=== PATIENT | female | born 1985 | race American Indian/Alaskan Native ===

== ENCOUNTER 2017-01-09 19:24 | Emergency (ER) | payer MEDICAID ==
--- NOTE | 2017-01-09 20:52 | Emergency Department Report ---
HPI - General Chief Complaint: Extremity Injury, Upper Time Seen by Provider: 01/09/17 20:36 - HPI HPI: Patient is a 31-year-old female presents to ED complaining of right leg down a 6 days. Patient states about 6 days ago she was at work when she slammed her right hand between the door and the medicine cabinet. Patient states she had some bruising on the right thumb that is now resolved. Patient states she is still experiencing some pain with lifting objects. Patient describes pain as throbbing in nature. She denies loss of sensation or any bleeding. She denies fevers/chills/nausea/vomiting/abdominal pain/chest pain/dyspnea/ headache or any other problems ED Past Medical Hx - Past Medical History Previous Medical History?: No - Surgical History Past Surgical History?: No - Social History Smoking Status: Never Smoker Substance Use Type: None - Medications Home Medications: Home Medications Medication Instructions Recorded Confirmed Last Taken Type Cyclobenzaprine [Flexeril] 10 mg PO QHS PRN #20 tablet 01/09/17 Unknown Rx Ibuprofen [Motrin] 800 mg PO Q8HR PRN #30 tablet 01/09/17 Unknown Rx ED Review of Systems ROS: Stated complaint: PAIN RT HAND Other details as noted in HPI Constitutional: denies: chills, fever Eyes: denies: eye pain, eye discharge, vision change ENT: denies: ear pain, throat pain Respiratory: denies: cough, shortness of breath, wheezing Cardiovascular: denies: chest pain, palpitations Endocrine: no symptoms reported Gastrointestinal: denies: abdominal pain, nausea, diarrhea Genitourinary: denies: urgency, dysuria, discharge Musculoskeletal: denies: back pain, joint swelling, arthralgia Skin: denies: rash, lesions Neurological: denies: headache, weakness, paresthesias Psychiatric: denies: anxiety, depression Hematological/Lymphatic: denies: easy bleeding, easy bruising Physical Exam - Physical Exam Vital Signs: Vital Signs 01/09/17 19:35 Temperature 98.3 F Pulse Rate 93 H Respiratory 18 Rate Blood Pressure 156/107 O2 Sat by Pulse 100 Oximetry Physical Exam: GENERAL: Alert and oriented x3, no apparent distress, Normal Gait, atraumatic. HEAD: Head is normocephalic and a-traumatic. LUNGS: Symetrical with respiration, No wheezing, no rales or crackles, CTAB. HEART: S1, S2 present, regular rate and rhythm without murmur, no rubs, no gallops. EXTREMITIES/MUSCULOSKELETAL: No cyanosis, clubbing, rash, lesions or edema. Full ROM bilaterally. UE Pulses 2+ bilaterally. UE 5+ strength bilaterally, right hand joints is intact. Mild tenderness to palpation of the thumb. Patient able to move thumb without difficulty. Capillary refills 2 seconds. NEUROLOGIC: The patient is cooperative with no focal neurologic deficits. Cranial nerves II through XII are grossly intact. Normal speech. . Normal sensation in bilateral upper extremities, No loss of sensation, SKIN: Warm and dry, No lesions, No ulceration or induration present. ED Course Vital Signs 01/09/17 19:35 Temperature 98.3 F Pulse Rate 93 H Respiratory 18 Rate Blood Pressure 156/107 O2 Sat by Pulse 100 Oximetry ED Medical Decision Making - Radiology Data Radiology results: report reviewed, image reviewed FINAL REPORT EXAM: XR HAND 3 RT HISTORY: PAIN at thumb COMPARISONS: None. FINDINGS: Three views right hand Area of patient pain is indicated at the right 1st metacarpal. No bone lesion, periosteal reaction, or fracture. No deformity or gross malalignment. IMPRESSION: No displaced fracture. Consider additional imaging for worsening/persistent symptoms. Transcribed By: MB Dictated By: ARMANDO CAMARGO MD Electronically Authenticated By: ARMANDO CAMARGO MD Signed Date/Time: 01/09/172137 - Medical Decision Making 31-year-old female presents to ED with right hand arthralgia ED course: X-ray are ordered. X-ray shows- See above. Discussed findings with patient. Discussion patient take medication as prescribed. Discussed patient to follow up with primary care physician. Vital signs are normal patient is in no acute distress. She is alert and oriented 3 understands instructions given complex to follow Critical care attestation.: If time is entered above; I have spent that time in minutes in the direct care of this critically ill patient, excluding procedure time. ED Disposition Clinical Impression: Arthralgia of hand, right Disposition: DISCHARGED TO HOME OR SELFCARE Is pt being admited?: No Does the pt Need Aspirin: No Condition: Stable Instructions: Arthralgia (ED), Heat Pack Application (ED) Prescriptions: Cyclobenzaprine [Flexeril] 10 mg PO QHS PRN #20 tablet PRN Reason: Muscle Spasm Ibuprofen [Motrin] 800 mg PO Q8HR PRN #30 tablet PRN Reason: Pain Referrals: PRIMARY CARE, [Primary Care Provider] - 3-5 Days [facility] [Outside] - 3-5 Days [facility] [Outside] - 3-5 Days [facility] [Outside] - 3-5 Days Forms: Work/School Release Form(ED) Time of Disposition: 21:52
--- NOTE | 2017-01-09 21:43 | XRay Report ---
FINAL REPORT EXAM: XR HAND 3 RT HISTORY: PAIN at thumb COMPARISONS: None. FINDINGS: Three views right hand Area of patient pain is indicated at the right 1st metacarpal. No bone lesion, periosteal reaction, or fracture. No deformity or gross malalignment. IMPRESSION: No displaced fracture. Consider additional imaging for worsening/persistent symptoms.
[2017-01-09 22:13] VITALS: BP 132/86
== END 2017-01-09 22:11 | disposition home or self-care (01) ==
LOC: ED 19:24
DX: M25.541 Pain in joints of right hand (principal)
CPT/HCPCS: 99283

== ENCOUNTER 2017-02-09 14:22 | Emergency (ER) | payer SELFPAY ==
[2017-02-09] MEDS ORDERED: NORCO 5/325 PO ONE (17:53)
[2017-02-09] MEDS ORDERED: BACTRIM DS PO ONE (17:53)
[2017-02-09 18:16] VITALS: BP 156/93
--- NOTE | 2017-02-11 14:27 | Emergency Department Report ---
Entered by BAN JETT, acting as scribe for ALEXANDRA OG NP. ED General Adult HPI - General Chief complaint: Chest Pain Stated complaint: CHEST PAIN Time Seen by Provider: 02/09/17 17:48 Source: patient Mode of arrival: Ambulatory Limitations: No Limitations - History of Present Illness Initial comments: 31 y/o female with no significant PMHx presents to the ED c/o 2 bumps on left breast that began 2 days ago. Rates associated pain a 7/10, which she describes as sharp in quality. 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 She reports noticing the bumps later that night in the shower. She denies erythema to affected area, drainage, fever, chills, nausea, vomiting, and SOB. LMP 2016. NKDA. WILKERSON Complaint: 2 BUMPS ON LEFT BREAST Onset/Timin -: days(s) Location: chest (left breast) Radiation: non-radiation Severity scale (0 -10): 7 Quality: sharp Consistency: constant Improves with: none Worsens with: none Associated Symptoms: denies other symptoms, chest pain (left breast pain to affected areas). denies: confusion, cough, diaphoresis, fever/chills, headaches , malaise, nausea/vomiting, rash, seizure, shortness of breath, syncope, weakness Treatments Prior to Arrival: none - Related Data Previous Rx's Medication Instructions Recorded Last Taken Type Acetaminophen/Codeine [Tylenol #3] 1 tab PO Q6H PRN #6 tab 02/09/17 Unknown Rx Sulfamethoxazole/Trimethoprim 1 each PO BID #20 tablet 02/09/17 Unknown Rx [Bactrim DS TAB] Allergies Allergy/AdvReac Type Severity Reaction Status Date / Time peach Allergy Swelling Verified 01/09/17 19:35 ED Review of Systems Comment: All other systems reviewed and negative Constitutional: denies: chills, diaphoresis, fever, malaise, weakness Eyes: denies: eye pain, eye discharge, vision change ENT: denies: ear pain, throat pain Respiratory: denies: cough, orthopnea, shortness of breath, wheezing Cardiovascular: chest pain (left breast pain to affected areas). denies: palpitations, dyspnea on exertion, orthopnea, edema, syncope, paroxysmal nocturnal dyspnea Gastrointestinal: denies: abdominal pain, nausea, vomiting, diarrhea Genitourinary: denies: abnormal menses Musculoskeletal: denies: back pain, joint swelling, arthralgia Skin: other (2 bump on left breast with associated pain and no drainage). denies: rash, lesions Neurological: denies: headache, weakness, numbness, paresthesias ED Past Medical Hx - Past Medical History Previous Medical History?: No - Surgical History Past Surgical History?: No - Social History Smoking Status: Never Smoker Substance Use Type: None - Medications Home Medications: Home Medications Medication Instructions Recorded Confirmed Last Taken Type Acetaminophen/Codeine [Tylenol #3] 1 tab PO Q6H PRN #6 tab 02/09/17 Unknown Rx Sulfamethoxazole/Trimethoprim 1 each PO BID #20 tablet 02/09/17 Unknown Rx [Bactrim DS TAB] ED Physical Exam - General Limitations: No Limitations General appearance: alert, in no apparent distress - Head Head exam: Present: atraumatic, normocephalic - Eye Eye exam: Present: normal appearance, PERRL, EOMI Pupils: Present: normal accommodation - ENT ENT exam: Present: normal exam, mucous membranes moist, normal external ear exam - Neck Neck exam: Present: normal inspection, full ROM. Absent: tenderness, meningismus, lymphadenopathy - Respiratory Respiratory exam: Present: normal lung sounds bilaterally. Absent: respiratory distress, wheezes, rales, rhonchi, stridor - Cardiovascular Cardiovascular Exam: Present: regular rate, normal rhythm, normal heart sounds. Absent: systolic murmur, diastolic murmur, rubs, gallop - GI/Abdominal GI/Abdominal exam: Present: soft, normal bowel sounds. Absent: distended - Extremities Exam Extremities exam: Present: normal inspection, full ROM - Back Exam Back exam: Present: normal inspection, full ROM - Neurological Exam Neurological exam: Present: alert, oriented X3 - Psychiatric Psychiatric exam: Present: normal affect, normal mood - Skin Skin exam: Present: warm, dry, intact. Absent: rash - Other Other exam information: Chest: 2 early mildly erythematous small (1cm) , abscesses present on left breast at 9 o'clock in position that is tender to touch with no drainage or flunctuance present. ED Course Vital Signs 02/09/17 02/09/1717 14:29 18:03 18:15 Temperature 98.4 F Pulse Rate 88 74 Respiratory 20 18 16 Rate Blood Pressure 155/93 Blood Pressure 156/93 [Right] O2 Sat by Pulse 100 98 Oximetry - Pulse Oximetry Interpretation Digit-Finger Initial Pulse Oximetry Readin Actions Taken: none ED Medical Decision Making - Differential Diagnosis rash, abscess, cellulitis Critical Care Time: No ED Disposition Clinical Impression: Breast abscess Disposition: DC- TO HOME OR SELFCARE Is pt being admited?: No Does the pt Need Aspirin: No Condition: Stable Instructions: Abscess (ED) Additional Instructions: Warm compresses at least 4 times a day Return to the ED in 2 days for recheck No driving or alcohol after taking Tylenol #3 for pain follow up with PCP in 3-5 days for bp recheck Prescriptions: Acetaminophen/Codeine [Tylenol #3] 1 tab PO Q6H PRN #6 tab PRN Reason: Pain , Severe (7-10) Sulfamethoxazole/Trimethoprim [Bactrim DS TAB] 1 each PO BID #20 tablet Referrals: IBAN CUNNINGHAM MD [Staff Physician] - 3-5 Days PRIMARY CARE, [Primary Care Provider] - 3-5 Days QASIM AVITIA MD [Staff Physician] - 3-5 Days Forms: Accompanied Note, Work/School Release Form(ED) This documentation as recorded by the MALIHA garcia JASMINE,accurately reflects the service I personally performed and the decisions made by ,ALEXANDRA OG, ELIZABETH.
== END 2017-02-09 18:28 | disposition home or self-care (01) ==
LOC: ED 14:22
DX: N61.1 Abscess of the breast and nipple (principal); N61.0 Mastitis without abscess
CPT/HCPCS: 93005; 93010; 99282

== ENCOUNTER 2017-05-28 20:00 | Emergency (ER) | payer MEDICAID ==
[2017-05-28 20:41] VITALS: BP 157/110
--- NOTE | 2017-05-28 21:46 | XRay Report ---
FINAL REPORT EXAM: XR ANKLE 2V LT HISTORY: LEFT ANKLE PAIN TECHNIQUE: Left ankle two views 2 images PRIORS: None. FINDINGS: Bone mineralization appears within normal limits. No acute fracture or subluxation is identified. No gross abnormality is seen in the soft tissues. IMPRESSION: 1. No acute osseous abnormality is identified. If symptoms persist, consider repeat study in 10-14 days to assess for a currently radiographically occult fracture.
--- NOTE | 2017-05-29 03:02 | Emergency Department Report ---
HPI - General Chief Complaint: Extremity Injury, Lower Time Seen by Provider: 05/29/17 03:01 - [facility] HPI: Patient is a 31-year-old female who presents to ED with her children are also seen here in the ED. Patient is complaining of left ankle pain 1 day. Patient states earlier when she got off 4 gallons walking she stepped into a pothole with her left foot. Patient states she is pain since incident. She denies bleeding, swelling, difficulty working. Patient states pain is aggravated by applied pressure to the foot. ED Past Medical Hx - Past Medical History Previous Medical History?: No - Surgical History Past Surgical History?: No - Social History Smoking Status: Never Smoker Substance Use Type: None - Medications Home Medications: Home Medications Medication Instructions Recorded Confirmed Last Taken Type Acetaminophen/Codeine [Tylenol #3] 1 tab PO Q6H PRN #6 tab 02/09/17 Unknown Rx Sulfamethoxazole/Trimethoprim 1 each PO BID #20 tablet 02/09/17 Unknown Rx [Bactrim DS TAB] Cyclobenzaprine [Flexeril] 10 mg PO QHS PRN #30 tablet 05/29/17 Unknown Rx Ibuprofen [Motrin] 800 mg PO Q8HR PRN #30 tablet 05/29/17 Unknown Rx ED Review of Systems ROS: Stated complaint: L ANKLE INJURY Other details as noted in HPI Constitutional: denies: chills, fever Eyes: denies: eye pain, eye discharge, vision change ENT: denies: ear pain, throat pain Respiratory: denies: cough, shortness of breath, wheezing Cardiovascular: denies: chest pain, palpitations Endocrine: no symptoms reported Gastrointestinal: denies: abdominal pain, nausea, diarrhea Genitourinary: denies: urgency, dysuria, discharge Musculoskeletal: denies: back pain, joint swelling, arthralgia Skin: denies: rash, lesions Neurological: denies: headache, weakness, paresthesias Psychiatric: denies: anxiety, depression Hematological/Lymphatic: denies: easy bleeding, easy bruising Physical Exam - Physical Exam Vital Signs: Vital Signs 05/28/17 20:37 Temperature 98.0 F Pulse Rate 87 Respiratory 18 Rate Blood Pressure 157/110 O2 Sat by Pulse 98 Oximetry Physical Exam: GENERAL: Alert and oriented x3, no apparent distress, Normal Gait, atraumatic. NECK: Supple. Non edematous, No carotid bruits. No lymphadenopathy or thyromegaly. No C-spine tenderness LUNGS: Symetrical with respiration, No wheezing, no rales or crackles, CTAB. HEART: S1, S2 present, regular rate and rhythm without murmur, no rubs, no gallops. Non tender to palpation EXTREMITIES/MUSCULOSKELETAL: No cyanosis, clubbing, rash, lesions or edema. Full ROM bilaterally. UE/LE Pulses 2+ bilaterally. LE and UE 5+ strength bilaterally, straight leg raise negative bilaterally NEUROLOGIC: The patient is cooperative with no focal neurologic deficits. Cranial nerves II through XII are grossly intact. Normal speech. Normal sensation in bilateral upper and lower extremities, No loss of sensation, SKIN: Warm and dry, No lesions, No ulceration or induration present. ED Course Vital Signs 05/28/17 20:37 Temperature 98.0 F Pulse Rate 87 Respiratory 18 Rate Blood Pressure 157/110 O2 Sat by Pulse 98 Oximetry ED Medical Decision Making - Radiology Data Radiology results: report reviewed, image reviewed FINAL REPORT EXAM: XR ANKLE 2V LT HISTORY: LEFT ANKLE PAIN TECHNIQUE: Left ankle two views 2 images PRIORS: None. FINDINGS: Bone mineralization appears within normal limits. No acute fracture or subluxation is identified. No gross abnormality is seen in the soft tissues. IMPRESSION: 1. No acute osseous abnormality is identified. If symptoms persist, consider repeat study in 10-14 days to assess for a currently radiographically occult fracture. Critical care attestation.: If time is entered above; I have spent that time in minutes in the direct care of this critically ill patient, excluding procedure time. ED Disposition Clinical Impression: Left ankle strain Qualifiers: Encounter type: initial encounter Qualified Code(s): S96.912A - Strain of unspecified muscle and tendon at ankle and foot level, left foot, initial encounter Disposition: TO HOME OR SELFCARE Is pt being admited?: No Does the pt Need Aspirin: No Condition: Stable Instructions: Ankle Exercises (GEN), Arthralgia (ED) Prescriptions: Cyclobenzaprine [Flexeril] 10 mg PO QHS PRN #30 tablet PRN Reason: Muscle Spasm Ibuprofen [Motrin] 800 mg PO Q8HR PRN #30 tablet PRN Reason: Pain Referrals: PRIMARY CARE, [Primary Care Provider] - 3-5 Days [facility] [Outside] - 3-5 Days [facility] [Outside] - 3-5 Days [facility] [Outside] - 3-5 Days Forms: Work/School Release Form Time of Disposition: 03:50
== END 2017-05-29 04:10 | disposition home or self-care (01) ==
LOC: ED 20:00
DX: S96.912A Strain of unspecified muscle and tendon at ankle and foot level, left foot, initial encounter (principal); X50.1XXA Overexertion from prolonged static or awkward postures, initial encounter; Y93.89 Activity, other specified; Y92.89 Other specified places as the place of occurrence of the external cause; Y99.8 Other external cause status
CPT/HCPCS: 99283

== ENCOUNTER 2017-09-14 14:50 | Emergency (ER) | payer MEDICAID ==
[2017-09-14 15:13] VITALS: BP 160/109
--- NOTE | 2017-09-14 16:22 | Emergency Department Report ---
Chief Complaint: Abdominal Pain Stated Complaint: ABDOMINAL PAIN Time Seen by Provider: 09/14/17 16:16 - HPI History of Present Illness: 31-year-old female presents with periumbilical abdominal pain that started about 2 hours prior to presentation. She believes she has a history of a hernia as something was "popping out." She took a Tylenol 3 and now that it has "kicked in" she says that the hernia has gone back in and the pain is reduced. She has never been previously seen or diagnosed for this hernia. She otherwise denies any past medical history. No nausea, vomiting, fever, dysuria , vaginal bleeding or discharge. - ROS Review of Systems: Patient is positive for abdominal pain and hernia. Patient is negative for fever, nausea, vomiting, vaginal bleeding or discharge, dysuria, back pain. - Exam Vital Signs: Vital Signs 09/14/17 15:11 Temperature 98.4 F Pulse Rate 81 Respiratory 18 Rate Blood Pressure 160/109 O2 Sat by Pulse 99 Oximetry Physical Exam: Patient is resting comfortably and currently eating a chicken wing. Obese habitus but abdomen is soft. No palpable hernia but patient has some umbilical tenderness to palpation that is very mild. Normal gait. No obvious deficits. MSE screening note: Focused history and physical exam performed. Due to findings the following was ordered: I ordered a urinalysis and urine test. She will have a abdominal x- ray. ED Disposition for MSE Condition: Stable Instructions: Abdominal Pain (ED)
[2017-09-14 17:03] LABS: Bilirubin,Urine NEG (Negative); Blood,Urine NEG (Negative); Color,Urine Yellow (Yellow); HCG Qualitative,Urine Negative (Negative); Mucus,Urine 1+ /HPF; Nitrite,Urine NEG (Negative); RBC,Urine < 1.0 /HPF (0.0-6.0); Urobilinogen,Urine < 2.0 mg/dL (<2.0)
--- NOTE | 2017-09-14 17:06 | Emergency Department Report ---
ED Abdominal Pain HPI - General Chief Complaint: Abdominal Pain Stated Complaint: ABDOMINAL PAIN Time Seen by Provider: 09/14/17 16:16 Source: patient Mode of arrival: Ambulatory Limitations: No Limitations - History of Present Illness Initial Comments: 31-year-old -[place] female comes in for complaint of abdominal pain. Patient reports that she has. Umbilicus hernia but has not official diagnosis. Patient reports that this is been given her problems for greater than a year. She reports that she if the hernia is out to much she will have vomiting. Patient's 3 para 3 last menstrual 08/30/2017. Blood was noted reviewing the triage note that her blood pressure is 160/109. This provider repeated it was 149/100. Patient denies any history of of hypertension. She denies any fever no chills. Patient does report that he has improved after taking the Tylenol No. 3. MD Complaint: abdominal pain -: year(s) (1) Location: periumbilical Radiation: none Severity scale (0 -10): 8 Quality: stabbing Consistency: intermittent Improves With: other (reducing) Worsens With: other (straining) Associated Symptoms: vomiting (only if the protrusion is out to much) - Related Data LMP Date: 08/30/17 Previous Rx's Medication Instructions Recorded Last Taken Type Acetaminophen/Codeine [Tylenol #3] 1 tab PO Q6H PRN #6 tab 02/09/17 Unknown Rx Sulfamethoxazole/Trimethoprim 1 each PO BID #20 tablet 02/09/17 Unknown Rx [Bactrim DS TAB] Cyclobenzaprine [Flexeril] 10 mg PO QHS PRN #30 tablet 05/29/17 Unknown Rx Ibuprofen [Motrin 800 MG tab] 800 mg PO Q8HR PRN #30 tablet 09/14/17 Unknown Rx Allergies Allergy/AdvReac Type Severity Reaction Status Date / Time peach Allergy Swelling Verified 09/14/17 15:11 ED Review of Systems ROS: Stated complaint: ABDOMINAL PAIN Other details as noted in HPI Constitutional: denies: chills, fever Eyes: denies: eye pain, eye discharge, vision change ENT: denies: ear pain, throat pain Respiratory: denies: cough, shortness of breath, wheezing Cardiovascular: denies: chest pain, palpitations Endocrine: no symptoms reported Gastrointestinal: abdominal pain. denies: nausea, diarrhea Genitourinary: denies: urgency, dysuria, discharge Musculoskeletal: denies: back pain, joint swelling, arthralgia Skin: denies: rash, lesions Neurological: denies: headache, weakness, paresthesias Psychiatric: denies: anxiety, depression Hematological/Lymphatic: denies: easy bleeding, easy bruising ED Past Medical Hx - Past Medical History Previous Medical History?: No - Surgical History Past Surgical History?: No - Social History Smoking Status: Never Smoker Substance Use Type: None - Medications Home Medications: Home Medications Medication Instructions Recorded Confirmed Last Taken Type Acetaminophen/Codeine [Tylenol #3] 1 tab PO Q6H PRN #6 tab 02/09/17 Unknown Rx Sulfamethoxazole/Trimethoprim 1 each PO BID #20 tablet 02/09/17 Unknown Rx [Bactrim DS TAB] Cyclobenzaprine [Flexeril] 10 mg PO QHS PRN #30 tablet 05/29/17 Unknown Rx Ibuprofen [Motrin 800 MG tab] 800 mg PO Q8HR PRN #30 tablet 09/14/17 Unknown Rx ED Physical Exam - General Limitations: No Limitations General appearance: alert, in no apparent distress - Eye Eye exam: Present: normal appearance - ENT ENT exam: Present: mucous membranes moist ED Course Vital Signs 09/14/17 15:11 Temperature 98.4 F Pulse Rate 81 Respiratory 18 Rate Blood Pressure 160/109 O2 Sat by Pulse 99 Oximetry ED Medical Decision Making - Radiology Data Radiology results: report reviewed, image reviewed FINAL REPORT EXAM: XR ABDOMEN 2V HISTORY: Abd pain TECHNIQUE: Supine and erect views of the abdomen PRIORS: None. FINDINGS: The bowel gas pattern is nonspecific. No free air is identified. Soft tissues have no evidence for mass shadows or calcifications. The bony structures are intact. IMPRESSION: Nonspecific, nonobstructive bowel gas pattern with no acute process noted. Transcribed By: [facility] Dictated By: PAULINE MALDONADO MD Electronically Authenticated By: PAULINE MALDONADO MD Signed Date/Time: 09/14/17 1423 - Medical Decision Making Patient has been evaluated by this provider as well as Dr. Brunner. X-ray of the abdomen shows nonspecific nonobstructive gas pattern. Urinalysis negative test is negative. Discussed the patient she needs to follow-up with her primary care provider to discuss a possible referral to surgery or further imaging. Critical care attestation.: If time is entered above; I have spent that time in minutes in the direct care of this critically ill patient, excluding procedure time. ED Disposition Clinical Impression: Abdominal pain Qualifiers: Abdominal location: periumbilical Qualified Code(s): R10.33 - Periumbilical pain Disposition: - TO HOME OR SELFCARE Is pt being admited?: No Does the pt Need Aspirin: No Condition: Stable Instructions: Abdominal Pain (ED) Additional Instructions: Please take pain medication as prescribed. Is very very important for him to follow-up which her primary care provider so he can evaluate for further studies or referrals. Prescriptions: Ibuprofen [Motrin 800 MG tab] 800 mg PO Q8HR PRN #30 tablet PRN Reason: Pain Referrals: PRIMARY CARE,MD [Primary Care Provider] - 3-5 Days your,provider [Other] - 3-5 Days Forms: Work/School Release Form(ED)
--- NOTE | 2017-09-14 18:24 | XRay Report ---
FINAL REPORT EXAM: XR ABDOMEN 2V HISTORY: Abd pain TECHNIQUE: Supine and erect views of the abdomen PRIORS: None. FINDINGS: The bowel gas pattern is nonspecific. No free air is identified. Soft tissues have no evidence for mass shadows or calcifications. The bony structures are intact. IMPRESSION: Nonspecific, nonobstructive bowel gas pattern with no acute process noted.
== END 2017-09-14 18:45 | disposition home or self-care (01) ==
LOC: ED 14:50
DX: R10.33 Periumbilical pain (principal); Z91.048 Other nonmedicinal substance allergy status
CPT/HCPCS: 74019; 81001; 81025; 99284

== ENCOUNTER 2018-03-02 18:51 | Emergency (ER) | payer MEDICAID, OTHER ==
--- NOTE | 2018-03-03 00:05 | Emergency Department Report ---
ED ENT HPI - General Chief complaint: Earache Stated complaint: CANT HEAR/CANT BREATHE Time Seen by Provider: 03/02/18 23:58 Source: patient Mode of arrival: Ambulatory Limitations: No Limitations - History of Present Illness Initial comments: Patient 32-year-old -[place] female who presents for bilat ear and sinus pain 3 days patient has history of otitis media and sinusitis recurrent patient denies fever states sinus pressure ear pressure and decreased hearing cough with postnasal drip yellow thick green there is no shortness of breath no wheezing no nausea vomiting. MD complaint: ear pain Onset/Timin -: days(s) Location: R ear, L ear, nose Severity: moderate Severity scale (0 -10): 5 Quality: aching, constant Consistency: constant Improves with: none, pressure Worsens with: movement Associated Symptoms: cough, tinnitus, hearing loss, discharge from ear, rhinorrhea - Related Data Previous Rx's Medication Instructions Recorded Last Taken Type Acetaminophen/Codeine [Tylenol #3] 1 tab PO Q6H PRN #6 tab 02/09/17 Unknown Rx Sulfamethoxazole/Trimethoprim 1 each PO BID #20 tablet 02/09/17 Unknown Rx [Bactrim DS TAB] Cyclobenzaprine [Flexeril] 10 mg PO QHS PRN #30 tablet 05/29/17 Unknown Rx Ibuprofen [Motrin 800 MG tab] 800 mg PO Q8HR PRN #30 tablet 09/14/17 Unknown Rx Amoxicillin/K Clav Tab [Augmentin 1 tab PO Q12HR #20 tab 03/03/18 Unknown Rx 875 mg] Ibuprofen 800 mg PO TID #30 tablet 03/03/18 Unknown Rx diphenhydrAMINE [Benadryl CAP] 25 mg PO Q6HR PRN #30 capsule 03/03/18 Unknown Rx Allergies Allergy/AdvReac Type Severity Reaction Status Date / Time peach Allergy Swelling Verified 09/14/17 15:11 ED Dental HPI - General Chief complaint: Earache Stated complaint: CANT HEAR/CANT BREATHE Time Seen by Provider: 03/02/18 23:58 Source: patient Mode of arrival: Ambulatory Limitations: No Limitations - Related Data Previous Rx's Medication Instructions Recorded Last Taken Type Acetaminophen/Codeine [Tylenol #3] 1 tab PO Q6H PRN #6 tab 02/09/17 Unknown Rx Sulfamethoxazole/Trimethoprim 1 each PO BID #20 tablet 02/09/17 Unknown Rx [Bactrim DS TAB] Cyclobenzaprine [Flexeril] 10 mg PO QHS PRN #30 tablet 05/29/17 Unknown Rx Ibuprofen [Motrin 800 MG tab] 800 mg PO Q8HR PRN #30 tablet 09/14/17 Unknown Rx Amoxicillin/K Clav Tab [Augmentin 1 tab PO Q12HR #20 tab 03/03/18 Unknown Rx 875 mg] Ibuprofen 800 mg PO TID #30 tablet 03/03/18 Unknown Rx diphenhydrAMINE [Benadryl CAP] 25 mg PO Q6HR PRN #30 capsule 03/03/18 Unknown Rx Allergies Allergy/AdvReac Type Severity Reaction Status Date / Time peach Allergy Swelling Verified 09/14/17 15:11 ED Review of Systems ROS: Stated complaint: CANT HEAR/CANT BREATHE Other details as noted in HPI Constitutional: denies: chills, fever ENT: ear pain, hearing loss, congestion Respiratory: cough. denies: orthopnea, shortness of breath, wheezing Cardiovascular: denies: chest pain, palpitations Endocrine: no symptoms reported Gastrointestinal: denies: abdominal pain, nausea, vomiting, diarrhea Genitourinary: denies: urgency, dysuria, discharge Musculoskeletal: denies: back pain, joint swelling, arthralgia Skin: denies: rash, lesions Neurological: denies: headache, weakness, paresthesias Psychiatric: denies: anxiety, depression Hematological/Lymphatic: denies: easy bleeding, easy bruising ED Past Medical Hx - Past Medical History Previous Medical History?: No - Surgical History Past Surgical History?: No - Social History Smoking Status: Never Smoker Substance Use Type: None - Medications Home Medications: Home Medications Medication Instructions Recorded Confirmed Last Taken Type Acetaminophen/Codeine [Tylenol #3] 1 tab PO Q6H PRN #6 tab 02/09/17 Unknown Rx Sulfamethoxazole/Trimethoprim 1 each PO BID #20 tablet 02/09/17 Unknown Rx [Bactrim DS TAB] Cyclobenzaprine [Flexeril] 10 mg PO QHS PRN #30 tablet 05/29/17 Unknown Rx Ibuprofen [Motrin 800 MG tab] 800 mg PO Q8HR PRN #30 tablet 09/14/17 Unknown Rx Amoxicillin/K Clav Tab [Augmentin 1 tab PO Q12HR #20 tab 03/03/18 Unknown Rx 875 mg] Ibuprofen 800 mg PO TID #30 tablet 03/03/18 Unknown Rx diphenhydrAMINE [Benadryl CAP] 25 mg PO Q6HR PRN #30 capsule 03/03/18 Unknown Rx ED Physical Exam - General Limitations: No Limitations General appearance: alert, in no apparent distress - Head Head exam: Present: atraumatic, normocephalic - Eye Eye exam: Present: normal appearance, PERRL, EOMI Pupils: Present: normal accommodation - ENT ENT exam: Present: mucous membranes moist, other (bilat maxillary sinus pain no erythem no swelling , nose bilat turbitnate erythema boggy yellow drainage and post nasal drip ) - Expanded ENT Exam Expanded Ear exam: Present: normal external inspection TM/Canal exam: Erythema: Right TM, Left TM, Effusion: Right TM, Left TM, Canal Tenderness: Right TM, Left TM Mouth exam: Present: normal external inspection. Absent: trismus Teeth exam: Present: normal inspection Throat exam: Positive: tonsillar erythema, tonsillomegaly. Negative: tonsillar exudate, R peritonsillar mass, L peritonsillar mass - Neck Neck exam: Present: normal inspection, full ROM. Absent: tenderness, meningismus, lymphadenopathy, thyromegaly - Respiratory Respiratory exam: Present: normal lung sounds bilaterally. Absent: respiratory distress, wheezes, rhonchi, chest wall tenderness - Cardiovascular Cardiovascular Exam: Present: regular rate, normal rhythm, normal heart sounds. Absent: systolic murmur, diastolic murmur, rubs, gallop - GI/Abdominal GI/Abdominal exam: Present: soft, normal bowel sounds. Absent: distended, tenderness, guarding, rebound, organomegaly, mass, bruit, pulsatile mass - Rectal Rectal exam: Present: deferred - Extremities Exam Extremities exam: Present: normal inspection, full ROM, normal capillary refill. Absent: tenderness, pedal edema, joint swelling, calf tenderness - Back Exam Back exam: Present: normal inspection - Neurological Exam Neurological exam: Present: alert, oriented X3, CN II-XII intact, normal gait, reflexes normal. Absent: motor sensory deficit - Psychiatric Psychiatric exam: Present: normal affect, normal mood - Skin Skin exam: Present: warm, dry, intact, normal color. Absent: rash ED Course Vital Signs 03/02/18 19:28 Temperature 98.3 F Pulse Rate 97 H Respiratory 16 Rate Blood Pressure 159/100 O2 Sat by Pulse 100 Oximetry ED Medical Decision Making - Medical Decision Making This is sinusitis with aom plan treat with Augmentin and Benadryl ibuprofen when necessary pain patient will follow up with PCP in 2-3 days ENT upon appointment is sinusitis is recurrent. There is no fever no chills at this time no nausea vomiting no dizziness no headache hearing is normal to exam patient is Prieto Sameer stated there is no vertigo Patient will be DC'd home in stable condition at this time Critical care attestation.: If time is entered above; I have spent that time in minutes in the direct care of this critically ill patient, excluding procedure time. ED Disposition Clinical Impression: Sinusitis Qualifiers: Sinusitis location: maxillary Chronicity: acute Recurrence: recurrent Qualified Code(s): J01.01 - Acute recurrent maxillary sinusitis AOM (acute otitis media) Qualifiers: Otitis media type: serous Laterality: bilateral Recurrence: recurrent Qualified Code(s): H65.06 - Acute serous otitis media, recurrent, bilateral Disposition: DC-01 TO HOME OR SELFCARE Is pt being admited?: No Does the pt Need Aspirin: No Condition: Good Instructions: Sinusitis (ED), Otitis Media (ED) Prescriptions: Amoxicillin/K Clav Tab [Augmentin 875 mg] 1 tab PO Q12HR #20 tab diphenhydrAMINE [Benadryl CAP] 25 mg PO Q6HR PRN #30 capsule PRN Reason: Congestion Ibuprofen 800 mg PO TID #30 tablet Referrals: [facility] [Outside] - 3-5 Days Forms: Work/School Release Form(ED) Time of Disposition: 00:12
[2018-03-03 00:35] VITALS: BP 154/97
== END 2018-03-03 00:40 | disposition home or self-care (01) ==
LOC: ED 18:51
DX: J01.01 Acute recurrent maxillary sinusitis (principal); H65.06 Acute serous otitis media, recurrent, bilateral; Z91.018 Allergy to other foods
CPT/HCPCS: 99282

== ENCOUNTER 2018-03-07 16:32 | Emergency (ER) | payer OTHER ==
--- NOTE | 2018-03-07 17:32 | Emergency Department Report ---
ED ENT HPI - General Chief complaint: Earache Stated complaint: CANT BREATH/WORRISER Time Seen by Provider: 03/07/18 17:10 Source: patient Mode of arrival: Ambulatory Limitations: No Limitations - History of Present Illness Initial comments: Patient is a 32-year-old female who has been taking Augmentin for the past 5 days for bilateral ear infection and possible sinus infection. Patient states that she has not felt much better. Patient states to her nasal drainage is no longer cleared and is now a greenish brown. Patient denies any fever nausea vomiting at this time. Location: R ear, L ear, nose Severity: moderate Severity scale (0 -10): 5 - Related Data Previous Rx's Medication Instructions Recorded Last Taken Type Acetaminophen/Codeine [Tylenol #3] 1 tab PO Q6H PRN #6 tab 02/09/17 Unknown Rx Sulfamethoxazole/Trimethoprim 1 each PO BID #20 tablet 02/09/17 Unknown Rx [Bactrim DS TAB] Cyclobenzaprine [Flexeril] 10 mg PO QHS PRN #30 tablet 05/29/17 Unknown Rx Ibuprofen [Motrin 800 MG tab] 800 mg PO Q8HR PRN #30 tablet 09/14/17 Unknown Rx Amoxicillin/K Clav Tab [Augmentin 1 tab PO Q12HR #20 tab 03/03/18 Unknown Rx 875 mg] Ibuprofen 800 mg PO TID #30 tablet 03/03/18 Unknown Rx diphenhydrAMINE [Benadryl CAP] 25 mg PO Q6HR PRN #30 capsule 03/03/18 Unknown Rx Azithromycin [Zithromax Z-LAURA] 250 mg PO DAILY #6 tablet 03/07/18 Unknown Rx Fluticasone [Flonase] 1 spray NS QDAY #1 bottle 03/07/18 Unknown Rx predniSONE [Deltasone] 20 mg PO QDAY #5 tab 03/07/18 Unknown Rx traMADol [Ultram] 50 mg PO Q6HR PRN #10 tablet 03/07/18 Unknown Rx Allergies Allergy/AdvReac Type Severity Reaction Status Date / Time peach Allergy Swelling Verified 03/07/18 16:35 ED Dental HPI - General Chief complaint: Earache Stated complaint: CANT BREATH/WORRISER Time Seen by Provider: 03/07/18 17:10 Source: patient Mode of arrival: Ambulatory Limitations: No Limitations - Related Data Previous Rx's Medication Instructions Recorded Last Taken Type Acetaminophen/Codeine [Tylenol #3] 1 tab PO Q6H PRN #6 tab 02/09/17 Unknown Rx Sulfamethoxazole/Trimethoprim 1 each PO BID #20 tablet 02/09/17 Unknown Rx [Bactrim DS TAB] Cyclobenzaprine [Flexeril] 10 mg PO QHS PRN #30 tablet 05/29/17 Unknown Rx Ibuprofen [Motrin 800 MG tab] 800 mg PO Q8HR PRN #30 tablet 09/14/17 Unknown Rx Amoxicillin/K Clav Tab [Augmentin 1 tab PO Q12HR #20 tab 03/03/18 Unknown Rx 875 mg] Ibuprofen 800 mg PO TID #30 tablet 03/03/18 Unknown Rx diphenhydrAMINE [Benadryl CAP] 25 mg PO Q6HR PRN #30 capsule 03/03/18 Unknown Rx Azithromycin [Zithromax Z-LAURA] 250 mg PO DAILY #6 tablet 03/07/18 Unknown Rx Fluticasone [Flonase] 1 spray NS QDAY #1 bottle 03/07/18 Unknown Rx predniSONE [Deltasone] 20 mg PO QDAY #5 tab 03/07/18 Unknown Rx traMADol [Ultram] 50 mg PO Q6HR PRN #10 tablet 03/07/18 Unknown Rx Allergies Allergy/AdvReac Type Severity Reaction Status Date / Time peach Allergy Swelling Verified 03/07/18 16:35 ED Review of Systems ROS: Stated complaint: CANT BREATH/WORRISER Other details as noted in HPI Comment: All other systems reviewed and negative ED Past Medical Hx - Past Medical History Previous Medical History?: No - Surgical History Past Surgical History?: No - Social History Smoking Status: Never Smoker Substance Use Type: None - Medications Home Medications: Home Medications Medication Instructions Recorded Confirmed Last Taken Type Acetaminophen/Codeine [Tylenol #3] 1 tab PO Q6H PRN #6 tab 02/09/17 Unknown Rx Sulfamethoxazole/Trimethoprim 1 each PO BID #20 tablet 02/09/17 Unknown Rx [Bactrim DS TAB] Cyclobenzaprine [Flexeril] 10 mg PO QHS PRN #30 tablet 05/29/17 Unknown Rx Ibuprofen [Motrin 800 MG tab] 800 mg PO Q8HR PRN #30 tablet 09/14/17 Unknown Rx Amoxicillin/K Clav Tab [Augmentin 1 tab PO Q12HR #20 tab 03/03/18 Unknown Rx 875 mg] Ibuprofen 800 mg PO TID #30 tablet 03/03/18 Unknown Rx diphenhydrAMINE [Benadryl CAP] 25 mg PO Q6HR PRN #30 capsule 03/03/18 Unknown Rx Azithromycin [Zithromax Z-LAURA] 250 mg PO DAILY #6 tablet 03/07/18 Unknown Rx Fluticasone [Flonase] 1 spray NS QDAY #1 bottle 03/07/18 Unknown Rx predniSONE [Deltasone] 20 mg PO QDAY #5 tab 03/07/18 Unknown Rx traMADol [Ultram] 50 mg PO Q6HR PRN #10 tablet 03/07/18 Unknown Rx ED Physical Exam - General Limitations: No Limitations General appearance: alert, in no apparent distress - Head Head exam: Present: atraumatic, normocephalic - Eye Eye exam: Present: normal appearance - ENT ENT exam: Present: mucous membranes moist, other (aguero sinus tenderness). Absent : TM's normal bilaterally (mild erythema bilaterally) - Neck Neck exam: Present: normal inspection - Respiratory Respiratory exam: Present: normal lung sounds bilaterally. Absent: respiratory distress - Cardiovascular Cardiovascular Exam: Present: regular rate, normal rhythm. Absent: systolic murmur, diastolic murmur, rubs, gallop - GI/Abdominal GI/Abdominal exam: Present: soft, normal bowel sounds - Extremities Exam Extremities exam: Present: normal inspection - Back Exam Back exam: Present: normal inspection - Neurological Exam Neurological exam: Present: alert, oriented X3 - Psychiatric Psychiatric exam: Present: normal affect, normal mood - Skin Skin exam: Present: warm, dry, intact, normal color. Absent: rash ED Course Vital Signs 03/07/18 16:35 Temperature 99 F Pulse Rate 128 H Respiratory 18 Rate Blood Pressure 151/93 O2 Sat by Pulse 97 Oximetry Critical care attestation.: If time is entered above; I have spent that time in minutes in the direct care of this critically ill patient, excluding procedure time. ED Disposition Clinical Impression: Sinusitis Qualifiers: Sinusitis location: pansinusitis Chronicity: acute Recurrence: not specified as recurrent Qualified Code(s): J01.40 - Acute pansinusitis, unspecified Disposition: - TO HOME OR SELFCARE Is pt being admited?: No Does the pt Need Aspirin: No Condition: Stable Instructions: Acute Bacterial Rhinosinusitis (ED) Referrals: ARMANDO BRAY MD [Primary Care Provider] - 3-5 Days
[2018-03-07 17:42] VITALS: BP 132/88
== END 2018-03-07 17:36 | disposition home or self-care (01) ==
LOC: ED 16:32
DX: J01.40 Acute pansinusitis, unspecified (principal); Z91.018 Allergy to other foods
CPT/HCPCS: 99282